=== PATIENT | male | born 1975 | race American Indian/Alaskan Native ===

== ENCOUNTER 2021-06-01 18:09 | Emergency (ER) | payer SELFPAY ==
[2021-06-01 18:24] VITALS: BP 188/115
== END 2021-06-01 23:39 | disposition left against medical advice (07) ==
LOC: ED 18:09
DX: T63.301A Toxic effect of unspecified spider venom, accidental (unintentional), initial encounter (principal); Z53.21 Procedure and treatment not carried out due to patient leaving prior to being seen by health care provider; Y92.89 Other specified places as the place of occurrence of the external cause